=== PATIENT | female | born 1975 | race Caucasian/White ===

== ENCOUNTER 2024-11-01 08:54 | Outpatient (OUT) | payer MEDICAID, SELFPAY ==
[2024-11-01 09:23] LABS: Hematocrit 47.4 % (36.0-48.0); Hemoglobin 15.6 g/dL (12.0-16.0); Mean Corpuscular HGB Conc 32.9 g/dL (29.9-35.2); Mean Corpuscular Hemoglobin 30.7 pg (26.7-34.0); Mean Corpuscular Volume 93.3 fL (81.0-99.0); Mean Platelet Volume 10.1 fL (9.5-13.5); Platelet Count 368 10^3/uL (150-450); Red Blood Count 5.08 10^6/uL (4.20-5.40); Red Cell Distribution Width 13.7 % (11.0-15.0); White Blood Count 20.4 10^3/uL (4.0-11.0)
[2024-11-01 10:08] LABS: Alanine Aminotransferase 24 U/L (14-59); Albumin Globulin Ratio 0.9; Albumin Level 3.4 g/dL (3.4-5.0); Alkaline Phosphatase 109 U/L (46-116); Anion Gap 12.7; Aspartate Amino Transferase 20 U/L (15-37); BUN Creatinine Ratio 16.8; Bilirubin Total 0.3 mg/dL (0.2-1.0); Calcium 8.7 mg/dL (8.5-10.1); Carbon Dioxide 27.7 mmol/L (21.0-32.0); Chloride 103 mmol/L (98-107); Chol HDL Ratio 8.3; Cholesterol 242 mg/dL (<=200); Estimated GFR (African America >60 (>=60 mL/min/1.73m^2); Estimated GFR (Non-African Ame >60 (>=60 mL/min/1.73m^2); Glucose 222 mg/dL (74-106); HDL Cholesterol 29 mg/dL (40-60); Potassium 4.4 mmol/L (3.5-5.1); Sodium 139 mmol/L (136-145); Total Protein 7.4 g/dL (6.4-8.2); Triglycerides 401 mg/dL (<=150); VLDL CHOLESTEROL 80.2 mg/dL
[2024-11-01 10:09] LABS: Atypical Lymphocytes Abs Man 2.44; Eosinophils Absolute Manual 1.22 10^3/uL (0.00-0.70); Segmented Neut Absolute Manual 11.22 10^3/uL (1.4-6.5)
[2024-11-01 10:10] LABS: Anisocytosis 1+
[2024-11-01 10:36] LABS: LDL Cholesterol Direct 120 mg/dL
[2024-11-02 03:07] LABS: Vitamin B12 417 pg/mL (232-1245)
== END 2024-11-01 08:55 | disposition home or self-care (01) ==
LOC: LAB 08:58
PROVIDERS: PCP Nurse Practitioner Family; Visit Provider Nurse Practitioner Family
DX: E78.1 Pure hyperglyceridemia (principal); E11.65 Type 2 diabetes mellitus with hyperglycemia; F17.200 Nicotine dependence, unspecified, uncomplicated; I10 Essential (primary) hypertension; E11.40 Type 2 diabetes mellitus with diabetic neuropathy, unspecified; D47.1 Chronic myeloproliferative disease
CPT/HCPCS: 36415; 80053; 80061; 82607; 83721; 85007; 85027